=== PATIENT | male | born 1990 | race Caucasian/White ===

== ENCOUNTER → 2020-02-25 | Outpatient (CLI) | payer BC ==
--- NOTE | 2020-02-25 16:17 | RAD ---
Examination: HIP LEFT 2V WITH PELVIS History: Recent hip joint replacement. Comparison/Correlation: None Findings: Frontal view the pelvis, frontal view left hip, and crosstable lateral view of the left hip obtained. Left hip joint prosthesis is present. No evidence of loosening involving the acetabular component or about the femoral head component. Left femoral head stem component terminates at the intertrochanteric region. Right hip joint space is unremarkable. Iliac crests are not included on this exam. Symphysis pubis is unremarkable. Impression: Left hip joint prosthesis is present and intact. Electronically signed by: Chivo Blair MD (02/25/2020 4:15 PM) [id number]
== END | disposition home or self-care (01) ==
LOC: RAD 15:24
DX: M25.552 Pain in left hip (principal); Z96.642 Presence of left artificial hip joint
CPT/HCPCS: 73502

== ENCOUNTER → 2021-04-28 | Outpatient (CLI) | payer BC ==
--- NOTE | 2021-04-28 11:12 | KCIC ---
Study: MRI of the left hip without contrast INDICATION: Left hip pain. History of hip resurfacing arthroplasty. COMPARISON: Correlation is made to left hip radiographs from 02/25/2020. TECHNIQUE: Multiplanar MR imaging of the left hip performed without the use of intravenous or intra-a rticular contrast. FINDINGS: Due to patient discomfort the exam was terminated after obtainment of axial and coronal sequences. Sa gittal sequences were not obtained. Metal artifact suppression techniques were utilized but the study remains degraded in the setting of a left hip resurfacing arthroplasty construct. The integrity of the hip arthroplasty construct would be better assessed with radiographs or CT. Taki ng into consideration the extent of artifact there is no evidence for acetabular osteolysis. Normal m arrow signal of the adequately visualized proximal left femur. No acute osseous abnormality or advanc ed degenerative changes seen to involve the right hip, pubic symphysis or partially imaged sacroiliac joints. Increased lateral center edge angle on the right and small osteophyte formation at the femor al head/neck junction. No large hip joint effusion is apparent on the left or periarticular soft tissue edema. Small amount of fluid lateral to the left greater trochanter but not typical of relevant greater trochanteric burs itis. No high-grade or full-thickness tear at the gluteus medius or minimus insertions or at the common ham string origin. The iliopsoas tendon appears to remain intact. Unremarkable rectus femoris and adducto rs. The ischiofemoral space and traversing quadratus femoris are within normal limits. No abnormality seen along the left sciatic nerve bundle. No localized muscular atrophy or edema. IMPRESSION: 1. Sagittal images were not obtained due to patient discomfort. The study is degraded by artifact re lating to a left hip resurfacing arthroplasty despite the use of metal artifact suppression technique s. 2. Taking the above into consideration, no imaging evidence for particle disease associated with the left hip arthroplasty. No acute or significant chronic soft tissue abnormality around the left hip. 3. 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 Electronically signed by: MOY PECK MD (04/28/2021 11:10 AM) [id number]
== END ==
LOC: KCIC MRI 09:12
DX: M16.12 Unilateral primary osteoarthritis, left hip (principal); M25.752 Osteophyte, left hip; M25.852 Other specified joint disorders, left hip
CPT/HCPCS: 73721